=== PATIENT | male | born 1990 | race Caucasian/White ===

== ENCOUNTER → 2020-02-01 | Outpatient (CLI) | payer BC ==
[~2020-02-01] MED LIST: AMOXICILLIN500 MG PO; AMOXIL500 M1 PO; AMOXIL500 MG PO; AUGMENTIN 875875 MG PO; CLARITIN10 MG PO; FLONASE 0.05% 121 EA NAS; MOTRIN800 MG PO; NKHM; PREDNISONE20 MG PO; TRAMADOL HCL50 MG PO; VICO10300 PO; ZITHROMAX Z PA250 MG PO
[2020-02-01 11:20] LABS: BASO % 0.5 % (0.0-1.0); EOS # 0.1 10*3/uL (0.0-0.4); HEMATOCRIT 47.6 % (42.0-52.0); LYMPH # 1.9 10*3/uL (1.3-4.4); LYMPH % 31.4 % (27.0-41.0); MEAN CORPUSCULAR HGB 27.9 pg (27.0-31.0); MEAN CORPUSCULAR HGB CONC 32.8 g/dl (33.0-37.0); MEAN PLATELET VOLUME 9.4 fl (9.6-12.3); MONO # 0.5 10*3/uL (0.1-1.0); MONO % 7.5 % (3.0-9.0); NEUT # 3.6 10*3/uL (2.3-7.9); NEUT % 57.9 % (47.0-73.0); PLATELET COUNT AUTOMATED 202 10*3/uL (130-400); RED CELL DISTRI WIDTH 12.5 % (0-14.5); RETICULOCYTE % 1.53 % (0.50-2.50); WHITE BLOOD COUNT 6.1 10*3/uL (4.8-10.8)
[2020-02-01 11:48] LABS: ALBUMIN 3.9 gm/dl (3.1-4.5); ALKALINE PHOSPHATASE 44 U/L (45-117); BUN 15 mg/dl (7-24); CHLORIDE 108 mmol/L (98-107); CHOLESTEROL 191 mg/dL (<200); CREATININE 0.83 mg/dL (0.70-1.30); GAMMA GLUTAMYL TRANSPEPTIDASE 22 U/L (15-85); HDL CHOLESTEROL 33 mg/dl (40-60); IRON 109 ug/dL (65-175); LDL CHOLESTEROL 111 mg/dL (9-159); POTASSIUM 3.9 mmol/L (3.5-5.1); SGOT/AST 24 IU/L (3-35); SGPT/ALT 61 U/L (12-78); SODIUM 140 mmol/L (136-145); TOTAL IRON BINDING CAPACITY 283 ug/dl (250-450); TOTAL PROTEIN 7.7 gm/dL (6.4-8.2); TRIGLYCERIDES 234 mg/dl (<150); VLDL CHOLESTEROL 47 mg/dL (6-40)
[2020-02-01 12:29] LABS: BILIRUBIN NEGATIVE (NEGATIVE); BLOOD NEGATIVE (NEGATIVE); CLARITY CLEAR (CLEAR); COLOR YELLOW (YELLOW); GLUCOSE NEGATIVE (NEGATIVE); KETONE NEGATIVE (NEGATIVE)
[2020-02-01 12:30] LABS: LEUKO ESTERASE NEGATIVE (NEGATIVE); NITRITE NEGATIVE (NEGATIVE); UROBILINOGEN 0.2 E.U./dl (0.2-1.0)
[2020-02-01 13:07] LABS: FERRITIN 268.2 ng/mL (22.0-322.0); VITAMIN D, 25-HYDROXY 20.2 ng/mL (30-100)
== END | disposition home or self-care (01) ==
LOC: LAB 10:34
PROVIDERS: Family Medicine
DX: E55.9 Vitamin D deficiency, unspecified (principal); R79.89 Other specified abnormal findings of blood chemistry; R53.83 Other fatigue